=== PATIENT | male | born 1955 | race Caucasian/White ===

== ENCOUNTER 2021-04-19 10:23 | Emergency (ER) | payer MEDICARE, OTHER ==
[~2021-04-19] VITALS: Ht 172.7 cm; Wt 128.8 kg
[~2021-04-19 10:23] MED LIST: ALLO300T PO; ASPI300S PO; LISI-467 PO; NAPR-872 PO; OXYC1TAB18 PO; OXYC20TA42 PO; SIMV20TA PO; TIZA4TAB2 PO
[2021-04-19 11:13] LABS: BASOPHILS % (AUTO) 1 % (0-1); EOSINOPHILS % (AUTO) 3 % (1-7); LYMPHOCYTES % (AUTO) 20 % (22-44); MD NO; MEAN CORPUSCULAR HEMOGLOBIN 33.4 pg (27.5-34.5); MEAN CORPUSCULAR HGB CONC 34.3 g/dL (33.2-36.2); MEAN PLATELET VOLUME 8.6 fL (7.4-10.4); MONOCYTES % (AUTO) 8 % (2-9); NEUTROPHILS % (AUTO) 67 % (42-75); PLATELET COUNT 139 x10^3/uL (130-400); RED BLOOD COUNT 5.28 x10^6/uL (4.38-5.82); RED CELL DISTRIBUTION WIDTH 13.9 % (9.4-14.8)
[2021-04-19 11:22] LABS: ALANINE AMINOTRANSFERASE 31 U/L (12-78); ALBUMIN 3.7 g/dL (3.4-5.0); ANION GAP 5 mmol/L (5-15); CALCIUM 9.7 mg/dL (8.5-10.1); CHLORIDE 107 mmol/L (98-107); CREATININE 0.94 mg/dL (0.7-1.3)
[2021-04-19 11:25] LABS: ALKALINE PHOSPHATASE 73 U/L (45-117); BILIRUBIN,TOTAL 0.4 mg/dL (0.2-1.0); TOTAL PROTEIN 6.9 g/dL (6.4-8.2)
[2021-04-19 11:33] LABS: MICROSCOPIC AUTO
[2021-04-19] MEDS ORDERED: SODIUM CHLORIDE 0.9% 1,000ML IVBOLUS ONE (12:00)
[2021-04-19 12:33] VITALS: BP 182/99
--- NOTE | 2021-04-19 12:43 | NUR ---
PT OFF THE FLOOR TO CT
[2021-04-19] MEDS ORDERED: OMNIPAQUE 350 MG/ML, 150 ML BOTTLE ONE (13:58)
== END 2021-04-19 14:04 | disposition home or self-care (01) ==
LOC: ED 12:52
DX: R10.84 Generalized abdominal pain (principal); E78.00 Pure hypercholesterolemia, unspecified; I50.9 Heart failure, unspecified; M10.9 Gout, unspecified
CPT/HCPCS: 36415; 74021; 74177; 80053; 81001; 83690; 85025; 99285; Q9967

== ENCOUNTER → 2021-05-19 | Outpatient (CLI) | payer MEDICARE | END | disposition home or self-care (01) | LOC: RAD 11:17 | PROVIDERS: ATTEND Family Medicine | DX: M87.851 Other osteonecrosis, right femur (principal) ==